=== PATIENT | female | born 1970 ===

== ENCOUNTER 2023-05-06 14:11 | Emergency (ER) | payer OTHER, SELFPAY ==
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
[2023-05-06 14:17] VITALS: BP 117/81; PULSE 77; RESP 19; TEMP 36.6; O2SAT 98; BMI 38.7
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
[2023-05-06] MEDS: Ibuprofen 600 MG TABLET PO (18:00)
== END 2023-05-06 18:02 | disposition home or self-care (01) ==
PROVIDERS: Emergency Provider Internal Medicine
DX: M25.551 Pain in right hip (principal); M25.562 Pain in left knee
CPT/HCPCS: 73502; 73564; 99283